=== PATIENT | female | born 1990 | race Caucasian/White ===

== ENCOUNTER 2019-05-24 09:42 | Emergency (ER) | payer BC, OTHER ==
[~2019-05-24] VITALS: Ht 170.2 cm; Wt 65.2 kg
[2019-05-24 09:44] VITALS: BP 134/96
[2019-05-24] MEDS ORDERED: CLINDAMYCIN/D5W 900mg/50ml 50 ML IV ONE (10:05)
[2019-05-24] MEDS ORDERED: clindamycin-Cleocin 900mg/D5W 50 ML IV ONE (10:09)
[2019-05-24 10:29] LABS: BASOPHILS % (AUTO) 0.3 % (0-1); EOSINOPHILS % (AUTO) 0.4 % (0-6); HEMATOCRIT 41.6 % (35.0-45.0); HEMOGLOBIN 14.3 g/dl (12.0-16.0); LYMPHOCYTES # (AUTO) 1.2 X10'3 (1.1-4.8); MEAN CORPUSCULAR HEMOGLOBIN 30.2 PG (27.0-31.0); MEAN CORPUSCULAR HGB CONC 34.4 g/dL (33.0-36.5); MEAN PLATELET VOLUME 8.6 FL (7.4-10.4); MONOCYTES # (AUTO) 0.6 X10'3 (0-0.9); MONOCYTES % (AUTO) 7.6 % (2-12); NEUTROPHILS # (AUTO) 6.2 X10'3 (1.8-7.7); NEUTROPHILS % (AUTO) 76.7 % (42-75); PLATELET COUNT 249 X10'3 (140-440); RED BLOOD COUNT 4.72 X10'6 (4.20-5.60); RED CELL DISTRIBUTION WIDTH 12.1 % (11.5-14.5); WHITE BLOOD COUNT 8.2 X10'3 (4.5-11.0)
[2019-05-24] MEDS ORDERED: morphine 4 MG/ML inj SYRINge IV ONE (10:35)
[2019-05-24] MEDS ORDERED: ondansetron/PF 4mg/2ml inj IV ONE (10:35)
[2019-05-24 10:40] LABS: ALANINE AMINOTRANSFERASE 22 U/L (12-78); ALBUMIN 4.2 G/DL (3.4-5.0); ALBUMIN/GLOBULIN RATIO 1.1 (1.1-1.5); ALKALINE PHOSPHATASE 64 IU/L (46-116); ANION GAP 7 (8-16); ASPARTATE AMINO TRANSFERASE 11 U/L (10-37); BILIRUBIN,TOTAL 0.8 MG/DL (0.1-1.0); BLOOD UREA NITROGEN 11 MG/DL (7-18); BUN/CREATININE RATIO 14.5 (6.6-38.0); CALCIUM 9.2 MG/DL (8.5-10.1); CHLORIDE 103 MMOL/L (99-107); CREATININE 0.76 MG/DL (0.40-0.90); GLUCOSE 91 MG/DL (70-104); POTASSIUM 3.7 MMOL/L (3.5-5.1); SODIUM 141 MMOL/L (135-145); TOTAL CARBON DIOXIDE 31.4 MMOL/L (24-32); TOTAL PROTEIN 8.1 G/DL (6.4-8.2); eGFR > 90 ML/MIN
[2019-05-24] MEDS ORDERED: HYDR-4353 PO (10:41)
[2019-05-24] MEDS ORDERED: AMOX-580 PO (10:41)
[2019-05-24] MEDS ORDERED: ONDA4TAB6 PO (10:57)
== END 2019-05-24 11:02 | disposition home or self-care (01) ==
LOC: ER 09:43
DX: K04.7 Periapical abscess without sinus (principal)
CPT/HCPCS: 36415; 80053; 85025; 96365; 96375; 99283; J2270; J2405; J3490